=== PATIENT | female | born 1980 | race Caucasian/White ===

== ENCOUNTER 2021-06-21 10:08 | Emergency (ER) | payer MEDICAID ==
[~2021-06-21] VITALS: Ht 162.6 cm; Wt 58.1 kg
[2021-06-21 10:18] VITALS: BP 104/73
--- NOTE | 2021-06-21 10:23 | NUR ---
TENT 1.
--- NOTE | 2021-06-21 10:40 | NUR ---
41 Y/O F BIB SPOUSE FROM HOME, PATIENT PRESENTS TO ED WITH CHILLS, JACKSON, BODY ACHES, "FEELING HOT", NON PRODUCTIVE COUGH AND RUNNY NOSE FOR 4 DAYS. PT STATES NO ONE ELSE SICK IN HOUSEHOLD. DENIES N/V/D; SKIN IS PINK/WARM/DRY; AAOX4 WITH EVEN AND STEADY GAIT; LUNGS CLEAR BL; HR EVEN AND REGULAR; PATIENT STATES PAIN OF 8/10 AT THIS TIME; VSS; PATIENT POSITIONED FOR COMFORT; HOB ELEVATED; BEDRAILS UP X2; BED DOWN. ER MD MADE AWARE OF PT STATUS. PMH: DENIES MED: IBUPROFEN 200MG 3AM TODAY NKA
[2021-06-21] MEDS ORDERED: KETOROLAC 60 MG/2 ML VIAL IM ONE (10:50)
[2021-06-21] MEDS ORDERED: IBUP-2213 PO (11:12)
[2021-06-21 11:21] VITALS: BP 104/73
--- NOTE | 2021-06-21 11:21 | NUR ---
Patient discharged with v/s stable. Written and verbal after care instructions given and explained. Patient alert, oriented and verbalized understanding of instructions. Ambulatory with steady gait. All questions addressed prior to discharge. ID band removed. Patient advised to follow up with PMD. Rx of IBUPROFEN (SENT) given. Patient educated on indication of medication including possible reaction and side effects. Opportunity to ask questions provided and answered.
== END 2021-06-21 11:21 | disposition home or self-care (01) ==
LOC: MED 10:08
DX: R50.9 Fever, unspecified (principal); M79.10 Myalgia, unspecified site; R05.9 Cough, unspecified
CPT/HCPCS: 96372; 99283; J1885

== ENCOUNTER 2023-12-27 16:58 | Emergency (ER) | payer MEDICAID ==
[~2023-12-27] VITALS: Ht 162.6 cm; Wt 60.8 kg
[~2023-12-27 16:58] MED LIST: IBUP-2213 PO
[2023-12-27 17:36] VITALS: BP 111/70; PULSE 77; RESP 20; TEMP 98.7; O2SAT 100
[2023-12-27] MEDS: LIDOCAINE MPF 1% 10 MG/ML VIAL INJ ONE (19:00)
[2023-12-27 19:20] VITALS: BP 111/70; PULSE 77; RESP 20; TEMP 98.7; O2SAT 100
== END 2023-12-27 19:32 | disposition home or self-care (01) ==
LOC: MED 16:58
DX: S61.212A Laceration without foreign body of right middle finger without damage to nail, initial encounter (principal); S61.214A Laceration without foreign body of right ring finger without damage to nail, initial encounter; Z79.899 Other long term (current) drug therapy; W26.8XXA Contact with other sharp object(s), not elsewhere classified, initial encounter; Y93.89 Activity, other specified; Y92.89 Other specified places as the place of occurrence of the external cause; Y99.8 Other external cause status
CPT/HCPCS: 12001; 90471; 90715; 99283; J2001